=== PATIENT | male | born 1985 | race Caucasian/White ===

== ENCOUNTER 2016-09-10 23:59 | Emergency (ER) | payer BC ==
[2016-09-11] MEDS ORDERED: Fentanyl 100 MCG/2 ML VIAL ONE ×2 (00:24→01:06)
[2016-09-11] MEDS ORDERED: Ketorolac Tromethamine 30 MG/ML VIAL ONE (00:24)
[2016-09-11] MEDS ORDERED: Tamsulosin HCl 0.4 MG CAP PO SCH (00:30)
[2016-09-11 00:46] LABS: Prothrombin Time 13.7 SEC (12.0-14.7)
[2016-09-11 00:49] LABS: #Basophils 0.1 thou/uL (0.0-0.2); #Eosinphils 0.2 thou/uL (0.0-0.7); #Lymphocytes 3.7 thou/uL (1.20-3.40); #Neutrophils 5.6 thou/uL (1.40-6.50); %Basophils 0.9 % (0.0-1.0); %Eosinophils 1.9 % (0.0-10.0); %Lymphocytes 35.1 % (21.0-51.0); %Monocytes 9.7 % (0.0-10.0); %Neutrophils 52.4 % (42.0-75.0); Hemoglobin 16.4 g/dL (14.0-18.0); Mean Corpuscular HGB CONC 36.4 g/dL (32.0-36.0); Mean Corpuscular Hemoglobin 31.3 pg (27.0-31.0); Mean Corpuscular Volume 85.9 fl (80.0-94.0); Mean Platelet Volume 7.2 fL (7.4-10.4); Platelet Count 254 thou/uL (130-400); RBC Distribution Width 11.4 % (11.5-14.5); Red Blood Cell (RBC) Count 5.23 mill/uL (4.70-6.10); White Blood Cell (WBC) Count 10.6 thou/uL (4.8-10.8)
[2016-09-11 00:53] LABS: ALT (SGPT) 32 U/L (0-55); AST (SGOT) 27 U/L (5-34); Albumin 4.4 g/dL (3.5-5.0); Alkaline Phosphatase 62 U/L (40-150); Anion Gap 13 mmol/L (10-20); BUN (Urea Nitrogen) 21 mg/dL (8.9-20.6); Bilirubin, Total 0.9 mg/dL (0.2-1.2); Calc. Creatinine Clearance 0 mL/min (70-130); Calcium 9.6 mg/dL (7.8-10.44); Carbon Dioxide 26 mmol/L (22-29); Chloride 107 mmol/L (98-107); Estimated GFR-MDRD 84; Globulin 2.8 g/dL (2.4-3.5); Glucose 100 mg/dL (70-105); Protein, Total 7.2 g/dL (6.0-8.3); Sodium 142 mmol/L (136-145)
[2016-09-11 00:55] LABS: Bilirubin Negative (Negative); Blood, Urine Small (Negative); Clarity Clear (Clear); Glucose, Urine (Dipstick) Negative (Negative); Leukocyte Negative (Negative); Nitrite Negative (Negative); Protein, Urine (Dipstick) Negative (Neg-Trace); Specific Gravity, Urine 1.025 (1.005-1.030); Urobilinogen 0.2 mg/dL (0.2-1.0); pH, Urine 5.5 (5.0-9.0)
[2016-09-11 01:03] LABS: Bacteria/HPF None Seen HPF (None Seen); RBC/HPF 0-3 HPF (0-3); Squamous Epithelial 0-3 HPF (0-3); WBC/HPF 0-3 HPF (0-3)
--- NOTE | 2016-09-11 09:15 | CT ---
PRELIMINARY REPORT/[facility]/EMERGENCY AFTER HOURS PROCEDURE: EXAM: CT Abdomen and Pelvis Without Intravenous Contrast CLINICAL HISTORY: 31 years old, male; Pain; Abdominal pain; Flank; Left; Prior surgery; Surgery date: 6+ months; Surge ry type: Lithotripsy and stent placement on the left side due to kidney stones. ; Patient HX: Pt in severe pain on left flank side. H/o kidney stones. TECHNIQUE: Axial computed tomography images of the abdomen and pelvis without intravenous contrast. Coronal reformatted images were created and reviewed. COMPARISON: No relevant prior studies available. FINDINGS: Lower thorax: No acute findings. ABDOMEN: Liver: Unremarkable. Gallbladder and bile ducts: Unremarkable. No calcified stones. No ductal dilation. Pancreas: Unremarkable. No ductal dilation. Spleen: Unremarkable. No splenomegaly. Adrenals: Unremarkable. No mass. Kidneys and ureters: Mild LEFT hydronephrosis with multiple small LEFT renal stones. 9.1 mm proximal LEFT ureteral stone. 2 mm RIGHT renal stone. Stomach and bowel: Unremarkable. No obstruction. No mucosal thickening. Appendix: No findings to suggest acute appendicitis. PELVIS: Bladder: Unremarkable. No stones. Reproductive: Unremarkable as visualized. ABDOMEN and PELVIS: Intraperitoneal space: Unremarkable. No free air. No significant fluid collection. Bones/joints: No acute fracture. No dislocation. Soft tissues: Unremarkable. Vasculature: Unremarkable. No abdominal aortic aneurysm. Lymph nodes: Unremarkable. No enlarged lymph nodes. IMPRESSION: 9.1 mm proximal LEFT ureteral stone with multiple small LEFT renal stones. Mild LEFT hydronephrosis. 2 mm RIGHT renal stone Thank you for allowing us to participate in the care of your patient. Dictated and Authenticated by: Camilo De La Rosa MD 09/11/2016 12:55 AM Central Time ([place] \[place]\ [place]) FINAL REPORT CT ABDOMEN AND PELVIS WITHOUT CONTRAST: DATE: 09/11/16. FINDINGS: Spiral CT of the abdomen and pelvis was performed for evaluation of left flank pain. Axial slices w ere acquired, then coronal reconstructions were done. There is a large 9-10 mm calculus in the proximal left ureter just beyond the UPJ. It is causing mi ld to moderate left hydronephrosis. There are other nonobstructing renal calculi in the left kidney and at least 1 nonobstructing calculus in the right kidney. No calculi are seen in the distal uret er or the urinary bladder. The lung bases are clear. The spleen is a little generous in size at 13.7 cm in length. No hepatic masses were seen, though the overall liver size was upper normal. The pancreas, gallbladder, adren al glands, and abdominal aorta appeared normal. The bowel was nondistended. There are no inflammatory changes around bowel. No free air or free fl uid was seen. CT of the pelvis shows no mass, inflammatory change or free fluid. IMPRESSION: 1. A 9-10 mm proximal left ureteral calculus near the ureteropelvic junction causing mild to modera te left hydronephrosis. 2. Small nonobstructing calculi present in the right kidney and in the left kidney. 3. Hepatic and splenic sizes are slightly generous. Report in agreement with preliminary reading by [facility]. POS: HOME
== END 2016-09-11 01:58 | disposition short-term general hospital (02) ==
LOC: BURERS 23:59
DX: N13.2 Hydronephrosis with renal and ureteral calculous obstruction (principal); G40.909 Epilepsy, unspecified, not intractable, without status epilepticus; Z87.891 Personal history of nicotine dependence
CPT/HCPCS: 74176; 80053; 81003; 81015; 85025; 85610; 96361; 96365; 96375; 96376; J1885; J3010

== ENCOUNTER 2016-09-27 15:31 | Outpatient (CLI) | payer BC ==
--- NOTE | 2016-09-27 21:30 | RAD ---
ABDOMEN ONE VIEW: Date: 09-27-16 Comparison: Retrograde study dated 09-11-16 done at [facility]. FINDINGS: A ureteral stent has been placed on the left. The proximal pigtail appears to be the renal pelvis an d the distal pigtail in the urinary bladder. There are still calculi in the lower pole of the left k idney. No calcifications are seen elsewhere. IMPRESSION: Normal positioning of ureteral stent. Left renal calculi. No obvious ureteral calculi. POS: HOME
== END 2016-09-27 15:32 | disposition home or self-care (01) ==
LOC: BURRAD 15:31
PROVIDERS: ATTEND Urology
DX: N20.0 Calculus of kidney (principal)
CPT/HCPCS: 74000

== ENCOUNTER 2016-10-01 08:43 | Outpatient (CLI) | payer BC | END 2016-10-01 08:44 | disposition home or self-care (01) | LOC: BURLAB 08:43 | PROVIDERS: ATTEND Urology | DX: N20.0 Calculus of kidney (principal) | CPT/HCPCS: 87086 ==

== ENCOUNTER 2016-12-28 21:02 | Emergency (ER) | payer BC | END 2016-12-28 21:35 | disposition home or self-care (01) | LOC: BURERS 21:02 | DX: L02.31 Cutaneous abscess of buttock (principal); Z87.891 Personal history of nicotine dependence; Z87.442 Personal history of urinary calculi; Z79.899 Other long term (current) drug therapy | CPT/HCPCS: 10060; 87070; 87077; 87186; 87205; J2001 ==

== ENCOUNTER 2017-08-06 16:15 | Emergency (ER) | payer BC ==
[2017-08-06] MEDS ORDERED: Ondansetron ODT 4 MG TAB ONE (16:50)
[2017-08-06] MEDS ORDERED: Ketorolac Tromethamine 30 MG/ML VIAL ONE (16:50)
[2017-08-06] MEDS ORDERED: Lidocaine 1% 20 ML MDV ONE ×2 (17:10)
== END 2017-08-06 17:45 | disposition home or self-care (01) ==
LOC: BURERS 16:15
DX: L02.31 Cutaneous abscess of buttock (principal); Z87.891 Personal history of nicotine dependence
CPT/HCPCS: 10060; 87070; 87186; 87205; 96372; J1885; J2001; Q0162

== ENCOUNTER 2018-12-03 23:11 | Emergency (ER) | payer BC ==
[2018-12-03 23:25] LABS: Clarity Hazy (Clear)
[2018-12-03 23:26] LABS: Bilirubin Negative (Negative); Blood, Urine Moderate (Negative); Glucose, Urine (Dipstick) Negative (Negative); Leukocyte Negative (Negative); Nitrite Negative (Negative); Protein, Urine (Dipstick) Negative (Neg-Trace); Specific Gravity, Urine 1.026 (1.002-1.036); Urobilinogen 0.2 mg/dL (0.2-1.0); pH, Urine 5.5 (5.0-9.0)
[2018-12-03] MEDS ORDERED: Ketorolac Tromethamine 30 MG/ML VIAL ONE ×2 (23:29→23:40)
[2018-12-03 23:33] LABS: RBC/HPF 21-50 HPF (0-3); Squamous Epithelial 0-3 HPF (0-3); WBC/HPF 0-3 HPF (0-3)
[2018-12-04] MEDS ORDERED: HYDROcodone/Acetaminophen 5/325 mg Tablet ONE ×2 (00:01→00:22)
[2018-12-04 00:03] LABS: #Basophils 0.1 thou/uL (0.0-0.2); #Eosinphils 0.2 thou/uL (0.0-0.7); #Lymphocytes 2.9 thou/uL (1.20-3.40); #Monocytes 1.1 thou/uL (0.11-0.59); #Neutrophils 6.5 thou/uL (1.40-6.50); %Basophils 0.9 % (0.0-1.0); %Eosinophils 2.2 % (0.0-10.0); %Lymphocytes 27.2 % (21.0-51.0); %Neutrophils 59.8 % (42.0-75.0); Hemoglobin 15.8 g/dL (14.0-18.0); Mean Corpuscular HGB CONC 34.9 g/dL (32.0-36.0); Mean Corpuscular Hemoglobin 29.6 pg (27.0-31.0); Mean Corpuscular Volume 84.7 fL (78.0-98.0); Platelet Count 255 thou/uL (130-400); RBC Distribution Width 11.9 % (11.5-14.5); Red Blood Cell (RBC) Count 5.35 mill/uL (4.70-6.10); White Blood Cell (WBC) Count 10.8 thou/uL (4.8-10.8)
[2018-12-04 00:15] LABS: Anion Gap 14 mmol/L (10-20); BUN (Urea Nitrogen) 16 mg/dL (8.9-20.6); Calc. Creatinine Clearance 0 mL/min (70-130); Carbon Dioxide 23 mmol/L (22-29); Chloride 109 mmol/L (98-107); Estimated GFR-MDRD 87; Potassium 4.3 mmol/L (3.5-5.1); Sodium 142 mmol/L (136-145)
[2018-12-04 00:16] LABS: ALT (SGPT) 23 U/L (8-55); AST (SGOT) 19 U/L (5-34); Albumin 4.6 g/dL (3.5-5.0); Alkaline Phosphatase 63 U/L (40-150); Bilirubin, Total 0.6 mg/dL (0.2-1.2); Globulin 2.3 g/dL (2.4-3.5); Glucose 113 mg/dL (70-105); Protein, Total 6.9 g/dL (6.0-8.3)
--- NOTE | 2018-12-04 07:50 | CT ---
PRELIMINARY REPORT/[facility]/EMERGENCY AFTER HOURS PROCEDURE: EXAM: CT Abdomen and Pelvis Without Contrast EXAM DATE/TIME: 12/03/2018 11:23 PM CLINICAL HISTORY: 33 years old, male; Abdominal pain; Right; Patient HX: PT has prior HX of kidney stones, C/O of RIGHT flank pain for past 3 hours TECHNIQUE: Imaging protocol: Axial computed tomography images of the abdomen and pelvis without contrast. Rosales l and sagittal reformatted images were created and reviewed. Radiation optimization: All CT scans at this facility use at least one of these dose optimization techniques: automated exposure control; mA and/or kV adjustment per patient size (includes targeted e xams where dose is matched to clinical indication); or iterative reconstruction. COMPARISON: No relevant prior studies available. FINDINGS: Lungs: No consolidations in the lung bases. Liver: No liver masses. Gallbladder and bile ducts: Normal appearance of the gallbladder. No ductal dilation. Pancreas: No pancreatic mass or ductal dilation. Spleen: No splenic masses. Adrenals: No adrenal nodules. Kidneys and ureters: There are 2 stones in the proximal right ureter near the ureteropelvic junction measuring 8 x 5 x 5 mm and 7 x 4 x 5 mm. Additional 4 mm stone in the right kidney. Moderate right hy dronephrosis. There is a 3 mm stone in inferior pole of the left kidney. Stomach and bowel: No evidence of obstruction or bowel wall thickening. Appendix: Normal appendix. Intraperitoneal space: No free air or free fluid. Vasculature: Normal vasculature. Lymph nodes: No lymphadenopathy. Bladder: The bladder is decompressed. Reproductive: Normal. Bones/joints: No suspicious bone lesions. Soft tissues: No acute findings. IMPRESSION: 1. There are 2 stones in the proximal right ureter near the ureteropelvic junction resulting in moder ate hydronephrosis. 2. Bilateral nephrolithiasis. Thank you for allowing us to participate in the care of your patient. Dictated and Authenticated by: Rachele Powell MD 12/04/2018 12:30 AM Central Time ([place] & [place]) FINAL REPORT CT ABDOMEN AND PELVIS WITHOUT CONTRAST: DATE: 12/03/2018. FINDINGS: Comparison is made with a 09/11/2016 study. The prior exam showed renal calculi and left ureteral calc kinjal. Today's study shows 2 stones in the proximal right ureter just after the UPJ causing moderately sever e right hydronephrosis. One stone is about 8 mm wide and the other is 7 mm. There are also some res idual stones in the right kidney. A tiny stone is seen in the lower pole of the left kidney. No chloé al masses were seen within the limitations of a noncontrast study. The lung bases are clear. The liver, spleen, and pancreas showed no acute findings. The spleen is g enerous in size at 13.5 cm in length, but this is no different than before. The adrenal glands appea r normal. The gallbladder is decompressed. The aorta is not dilated. The bowel is unremarkable showing no sign of inflammatory change, wall thickening, or dilation. No f ree air or free fluid was seen. CT of the pelvis shows no pelvis masses, fluid collections, or inflammatory changes. IMPRESSION: 1. Two obstructing calculi in the proximal right ureter causing moderately severe right hydronephros is. They measure 7 and 8 mm respectively. 2. Residual smaller stones in each kidney. 3. Mild prominence of splenic size, but no different than the 2017 scan. Report in agreement with preliminary reading by [employer]. POS: HOME
== END 2018-12-04 00:30 | disposition home or self-care (01) ==
LOC: BURERS 23:11
DX: N13.2 Hydronephrosis with renal and ureteral calculous obstruction (principal); Z87.891 Personal history of nicotine dependence
CPT/HCPCS: 74176; 80053; 81003; 81015; 85025; 96374; 96375; J1885; J2270

== ENCOUNTER 2019-07-22 19:44 | Emergency (ER) | payer OTHER ==
[2019-07-22] MEDS ORDERED: Dicyclomine 20 MG TAB ONE (19:48)
[2019-07-22] MEDS ORDERED: Ketorolac Tromethamine 30 MG/ML VIAL ONE (19:48)
[2019-07-22] MEDS ORDERED: HYDROcodone/Acetaminophen 10/325 mg Tablet ONE (19:48)
--- NOTE | 2019-07-22 20:24 | CT ---
CT ABDOMEN AND PELVIS WITHOUT CONTRAST: History: Kidney stones, left sided flank pain. Comparison: 12-03-18 FINDINGS: Absence of oral and IV contrast reduces sensitivity of the exam, particularly for evaluation of solid organs and bowel. There are multiple calculi in the left kidney. There is left sided hydronephrosis due to a 4 mm left UPJ obstructing calculus. No calculi seen in the right kidney, right ureter, or the urinary bladder. No right sided hydroureteronephrosis. No calcified gallstones are seen. No free air or free fluid is noted in the abdomen or pelvis. The ap pendix is normal. IMPRESSION: 1. 4 mm calculus causing left UPJ obstruction. 2. Left renal calculi. POS: OFF
[2019-07-22] MEDS ORDERED: Morphine 2 MG/ML SYRINGE ONE (20:41)
[2019-07-22 21:23] LABS: Bilirubin Negative (Negative); Blood, Urine Moderate (Negative); Clarity Clear (Clear); Glucose, Urine (Dipstick) Negative (Negative); Leukocyte Negative (Negative); Nitrite Negative (Negative); Protein, Urine (Dipstick) 30 mg/dL (Neg-Trace); Urobilinogen 0.2 mg/dL (Less than 2)
[2019-07-22 21:28] LABS: Squamous Epithelial 0-3 HPF (0-3); WBC/HPF 0-3 HPF (0-3)
[2019-07-22 21:29] LABS: Bacteria/HPF None Seen HPF (None Seen)
== END 2019-07-22 21:27 | disposition home or self-care (01) ==
LOC: BURERS 19:44
DX: N13.2 Hydronephrosis with renal and ureteral calculous obstruction (principal); G40.909 Epilepsy, unspecified, not intractable, without status epilepticus; F17.220 Nicotine dependence, chewing tobacco, uncomplicated; Z87.442 Personal history of urinary calculi
CPT/HCPCS: 74176; 81003; 81015; 96372; J1885; J2270

== ENCOUNTER 2019-08-03 21:34 | Emergency (ER) | payer OTHER ==
[2019-08-03] MEDS ORDERED: Morphine 4 MG/ML VIAL ONE ×4 (21:58→23:02)
[2019-08-03] MEDS ORDERED: diphenhydrAMINE 50 MG/ML VIAL ONE (21:59)
[2019-08-03 22:04] LABS: #Basophils 0.1 thou/uL (0.0-0.2); #Eosinphils 0.5 thou/uL (0.0-0.7); #Lymphocytes 3.4 thou/uL (1.20-3.40); #Monocytes 0.9 thou/uL (0.11-0.59); #Neutrophils 6.7 thou/uL (1.40-6.50); %Basophils 0.6 % (0.0-1.0); %Lymphocytes 29.7 % (21.0-51.0); %Monocytes 7.5 % (0.0-10.0); %Neutrophils 58.1 % (42.0-75.0); Hemoglobin 16.7 g/dL (14.0-18.0); Mean Corpuscular HGB CONC 35.3 g/dL (32.0-36.0); Mean Corpuscular Volume 84.8 fL (78.0-98.0); Mean Platelet Volume 6.8 fL (7.4-10.4); Platelet Count 290 thou/uL (130-400); Red Blood Cell (RBC) Count 5.58 mill/uL (4.70-6.10); White Blood Cell (WBC) Count 11.5 thou/uL (4.8-10.8)
[2019-08-03 22:13] LABS: Bilirubin Negative (Negative); Blood, Urine Large (Negative); Clarity Clear (Clear); Glucose, Urine (Dipstick) Negative (Negative); Leukocyte Negative (Negative); Nitrite Negative (Negative); Protein, Urine (Dipstick) 30 mg/dL (Neg-Trace); Urobilinogen 0.2 mg/dL (Less than 2)
[2019-08-03 22:14] LABS: Bacteria/HPF Rare-Few HPF (None Seen); Squamous Epithelial None Seen HPF (0-3); Transitional Epithelial 0-3 HPF (None Seen); WBC/HPF 0-3 HPF (0-3)
[2019-08-03 22:22] LABS: ALT (SGPT) 61 U/L (8-55); AST (SGOT) 29 U/L (5-34); Albumin 4.7 g/dL (3.5-5.0); Alkaline Phosphatase 68 U/L (40-110); Anion Gap 15 mmol/L (10-20); BUN (Urea Nitrogen) 19 mg/dL (8.9-20.6); Bilirubin, Total 0.9 mg/dL (0.2-1.2); Calc. Creatinine Clearance 0 mL/min (70-130); Calcium 9.5 mg/dL (7.8-10.44); Carbon Dioxide 26 mmol/L (22-29); Chloride 106 mmol/L (98-107); Estimated GFR-MDRD 77; Globulin 2.9 g/dL (2.4-3.5); Glucose 111 mg/dL (70-105); Protein, Total 7.6 g/dL (6.0-8.3); Sodium 143 mmol/L (136-145)
[2019-08-03] MEDS ORDERED: Tamsulosin HCl 0.4 MG CAP PO SCH (22:45)
[2019-08-03] MEDS ORDERED: Ketorolac Tromethamine 30 MG/ML VIAL ONE (23:03)
[2019-08-04] MEDS ORDERED: HYDROcodone/Acetaminophen 5/325 mg Tablet ONE (00:06)
--- NOTE | 2019-08-04 10:05 | CT ---
PRELIMINARY REPORT/[facility]/EMERGENCY AFTER HOURS PROCEDURE Receipt of this report by the clinical staff was confirmed with ROSS GONZÁLES MD by Qing Schmidt on Aug 04, 2019 00:02:00 [employer]. Addendum electronically signed by Qing Schmidt on August 04, 2019 12:03:00 AM [facility] EXAM: CT Abdomen and Pelvis Without Intravenous Contrast CLINICAL HISTORY: LT FLANK PAIN THAT STARTED MIDAFTERNOON, PT STATES HE HAS HX OF KIDNEY STONES TECHNIQUE: Axial computed tomography images of the abdomen and pelvis without intravenous contrast. Coronal reformats provided. Total exam DLP 649.55. CONTRAST: None. COMPARISON: None provided. FINDINGS: LUNG BASES: No basilar airspace consolidation or pleural effusion. LIVER: Unremarkable. GALLBLADDER AND BILE DUCTS: Unremarkable. No calcified stone. No ductal dilation. PANCREAS: Unremarkable. SPLEEN: Unremarkable. ADRENAL GLANDS: Unremarkable. KIDNEYS, URETERS, AND BLADDER: 6 mm urinary stone within the left distal ureter with upstream uretera l dilation and moderate left hydronephrosis. There may also be a smaller stone abutting the primary s tone. No stones within the urinary bladder. There is a 2 mm stone at the mid pole of the right kidn ey and multiple punctate stones within the collecting system which are nonobstructive. Within the le ft kidney, there is a 2 mm stone at the upper pole and 5 mm stone at the lower pole. STOMACH AND BOWEL: No obstruction. No wall thickening. No CT evidence of colitis or acute diverticuli tis. APPENDIX: No CT evidence for appendicitis. PERITONEUM: No free fluid. No free air. LYMPH NODES: No lymphadenopathy. REPRODUCTIVE: Unremarkable as visualized. VASCULATURE: No aortic aneurysm. ABDOMINAL WALL AND SOFT TISSUES: Unremarkable. BONES: No fracture or suspicious osseous abnormality. Mild multilevel degenerative changes of the sp ine. IMPRESSION: 1. 6 mm obstructive stone within the left distal ureter. 2. Bilateral nephrolithiasis. ELECTRONICALLY SIGNED BY: Fermín Ahmadi M.D. Aug 03, 2019 11:59:21 PM [facility] FINAL REPORT CT ABDOMEN AND PELVIS WITHOUT CONTRAST: DATE: 08/03/2019. FINDINGS: Spiral CT of the abdomen and pelvis was done without oral or IV contrast in a renal stone protocol in this patient with left flank pain. Comparison is made with a prior CT dated 07/22/2019 which showed a calculus at the left UPJ. Today's exam shows a large 6 mm calculus in the distal left ureter just a cm or 2 shy of the left ure terovesical junction. It is causing moderate to severe left hydronephrosis. I would note that one o f the larger calcifications seen in the left kidney on the 07/22 study is no longer visible, so was pre sumably this calculus. Additionally, on the coronal view, there is a suggestion that there might be a tinier calculus following the larger one in the left ureter. There are still some residual calculi in each kidney. The scan otherwise was unremarkable. Aside from some minimal basilar atelectasis, the lungs are marija r. The liver, spleen, pancreas, gallbladder, adrenal glands, and aorta showed no acute findings with in the limitations of a noncontrast scan. The bowel shows no distention or thickening. The appendix was identified and appears normal. There is no free air or free fluid. CT of the pelvis was remarkable only for the distal left ureteral calculus. There were no inflammato ry changes in the pelvis or free fluid. IMPRESSION: 1. A 6 mm distal left ureteral calculus just shy of the left ureteropelvic junction causing moderate to severe left hydronephrosis. 2. Residual calculi in each kidney. It is noted that one of the larger calculi seen on the 07/22 CT i s no longer present in the left kidney, so it is presumably the stone causing the obstruction today. 3. Remainder of the exam showed no acute changes. Report in agreement with preliminary reading by [facility]. POS: HOME
== END 2019-08-04 00:22 | disposition home or self-care (01) ==
LOC: BURERS 21:34
DX: N13.2 Hydronephrosis with renal and ureteral calculous obstruction (principal); G40.909 Epilepsy, unspecified, not intractable, without status epilepticus; Z87.891 Personal history of nicotine dependence
CPT/HCPCS: 74176; 80053; 81003; 81015; 85025; 94760; 96374; 96375; 96376; J1200; J1885; J2270

== ENCOUNTER 2019-10-12 14:46 | Outpatient (CLI) | payer OTHER ==
--- NOTE | 2019-10-15 07:17 | RAD ---
CERVICAL SPINE 10/12/19 AP, lateral and open mouth views show no fracture, dislocation, or disc space narrowing. There is no arthritic change. The C1 to dens distance is normal and the soft tissues are normal in thickness. IMPRESSION: Normal exam. POS: HOME
== END 2019-10-12 14:47 | disposition home or self-care (01) ==
LOC: BURRAD 14:46
PROVIDERS: ATTEND Family Medicine
DX: M54.2 Cervicalgia (principal)
CPT/HCPCS: 72040

== ENCOUNTER 2020-09-24 10:02 | Emergency (ER) | payer BC ==
[2020-09-24 10:26] LABS: Bilirubin Negative (Negative); Blood, Urine Small (Negative); Clarity Slightly Cloudy (Clear); Glucose, Urine (Dipstick) Negative (Negative); Ketone, Urine Negative (Negative); Leukocyte Negative (Negative); Nitrite Negative (Negative); Protein, Urine (Dipstick) Negative (Neg-Trace); Specific Gravity, Urine 1.025 (1.005-1.030); Urobilinogen 0.2 mg/dL (Less than 2)
[2020-09-24] MEDS ORDERED: Morphine 4 MG/ML VIAL ONE ×2 (10:46→11:19)
[2020-09-24] MEDS ORDERED: diphenhydrAMINE 50 MG/ML VIAL ONE (10:47)
[2020-09-24 10:57] LABS: #Basophils 0.1 thou/uL (0.0-0.2); #Eosinphils 0.1 thou/uL (0.0-0.7); #Lymphocytes 2.1 thou/uL (1.20-3.40); #Monocytes 0.9 thou/uL (0.11-0.59); #Neutrophils 4.5 thou/uL (1.40-6.50); %Basophils 0.7 % (0.0-1.0); %Eosinophils 1.7 % (0.0-10.0); %Lymphocytes 26.8 % (21.0-51.0); %Monocytes 12.2 % (0.0-10.0); %Neutrophils 58.5 % (42.0-75.0); Hemoglobin 16.6 g/dL (14.0-18.0); Mean Corpuscular HGB CONC 34.5 g/dL (32.0-36.0); Mean Corpuscular Hemoglobin 30.3 pg (27.0-31.0); Mean Corpuscular Volume 87.9 fL (78.0-98.0); Mean Platelet Volume 6.5 fL (7.4-10.4); Platelet Count 268 thou/uL (130-400); Red Blood Cell (RBC) Count 5.46 mill/uL (4.70-6.10); White Blood Cell (WBC) Count 7.7 thou/uL (4.8-10.8)
[2020-09-24] MEDS ORDERED: Ketorolac Tromethamine 30 MG/ML VIAL ONE (11:19)
[2020-09-24 11:22] LABS: ALT (SGPT) 30 U/L (8-55); AST (SGOT) 23 U/L (5-34); Albumin 4.4 g/dL (3.5-5.0); Alkaline Phosphatase 64 U/L (40-110); Anion Gap 12 mmol/L (10-20); BUN (Urea Nitrogen) 14 mg/dL (8.9-20.6); Bilirubin, Total 0.8 mg/dL (0.2-1.2); Calc. Creatinine Clearance 0 mL/min (70-130); Calcium 9.3 mg/dL (7.8-10.44); Carbon Dioxide 27 mmol/L (22-29); Chloride 108 mmol/L (98-107); Globulin 2.8 g/dL (2.4-3.5); Glucose 102 mg/dL (70-105); Potassium 4.5 mmol/L (3.5-5.1); Protein, Total 7.2 g/dL (6.0-8.3); Sodium 142 mmol/L (136-145)
[2020-09-24 11:35] LABS: Squamous Epithelial 0-3 HPF (0-3); WBC/HPF 0-3 HPF (0-3)
[2020-09-24 11:36] LABS: Bacteria/HPF None Seen HPF (None Seen)
[2020-09-24] MEDS ORDERED: Tamsulosin HCl 0.4 MG CAP PO SCH (11:45)
== END 2020-09-24 12:25 | disposition home or self-care (01) ==
LOC: BURERS 10:02
DX: N13.2 Hydronephrosis with renal and ureteral calculous obstruction (principal); G40.909 Epilepsy, unspecified, not intractable, without status epilepticus; Z87.891 Personal history of nicotine dependence
CPT/HCPCS: 74176; 80053; 81003; 81015; 85025; 94760; 96374; 96375; J1200; J1885; J2270

== ENCOUNTER 2021-04-22 13:39 | Emergency (ER) | payer BC ==
[2021-04-22] MEDS ORDERED: Clindamycin/D5W 600 mg/50 ml Premix Bag ONE (14:03)
[2021-04-22 14:24] LABS: #Basophils 0.1 thou/uL (0.0-0.2); #Eosinphils 0.2 thou/uL (0.0-0.7); #Lymphocytes 1.8 thou/uL (1.20-3.40); #Monocytes 0.8 thou/uL (0.11-0.59); %Basophils 0.7 % (0.0-1.0); %Lymphocytes 18.2 % (21.0-51.0); %Monocytes 7.8 % (0.0-10.0); %Neutrophils 71.4 % (42.0-75.0); Mean Corpuscular HGB CONC 35.3 g/dL (32.0-36.0); Mean Corpuscular Hemoglobin 30.2 pg (27.0-31.0); Mean Corpuscular Volume 85.5 fL (78.0-98.0); Mean Platelet Volume 6.3 fL (7.4-10.4); Platelet Count 284 thou/uL (130-400); RBC Distribution Width 11.9 % (11.5-14.5); Red Blood Cell (RBC) Count 5.31 mill/uL (4.70-6.10); White Blood Cell (WBC) Count 9.9 thou/uL (4.8-10.8)
[2021-04-22 14:30] LABS: ALT (SGPT) 37 U/L (8-55); AST (SGOT) 30 U/L (5-34); Albumin 4.4 g/dL (3.5-5.0); Alkaline Phosphatase 52 U/L (40-110); Anion Gap 13 mmol/L (10-20); BUN (Urea Nitrogen) 13 mg/dL (8.9-20.6); Bilirubin, Total 0.8 mg/dL (0.2-1.2); Calc. Creatinine Clearance 0 mL/min (70-130); Carbon Dioxide 23 mmol/L (22-29); Chloride 109 mmol/L (98-107); Globulin 2.7 g/dL (2.4-3.5); Glucose 114 mg/dL (70-105); Potassium 4.2 mmol/L (3.5-5.1); Protein, Total 7.1 g/dL (6.0-8.3); Sodium 141 mmol/L (136-145)
== END 2021-04-22 15:24 | disposition home or self-care (01) ==
LOC: BURERS 13:39
DX: K04.7 Periapical abscess without sinus (principal); G40.909 Epilepsy, unspecified, not intractable, without status epilepticus; Z87.442 Personal history of urinary calculi; Z87.891 Personal history of nicotine dependence; Z79.899 Other long term (current) drug therapy
CPT/HCPCS: 80053; 83605; 85025; 96365; J3490

== ENCOUNTER 2021-05-01 14:56 | Emergency (ER) | payer BC ==
[2021-05-01] MEDS ORDERED: Boostrix 0.5 ML (Tdap) VIAL ONE (15:16)
[2021-05-01] MEDS ORDERED: HYDROcodone/Acetaminophen 10/325 mg Tablet ONE (15:17)
[2021-05-01] MEDS ORDERED: Clindamycin 150 MG CAP ONE (15:17)
[2021-05-01] MEDS ORDERED: Lidocaine 1% w/Epinephrine 1:100K 20 ML VIAL ONE (15:22)
== END 2021-05-01 16:44 | disposition home or self-care (01) ==
LOC: BURERS 14:56
DX: S56.221A Laceration of other flexor muscle, fascia and tendon at forearm level, right arm, initial encounter (principal); S61.511A Laceration without foreign body of right wrist, initial encounter; S64.01XA Injury of ulnar nerve at wrist and hand level of right arm, initial encounter; W26.0XXA Contact with knife, initial encounter; Z87.891 Personal history of nicotine dependence; Z23 Encounter for immunization
CPT/HCPCS: 12001; 90471; 90715

== ENCOUNTER 2021-05-24 09:05 | Emergency (ER) | payer BC ==
[2021-05-24] MEDS ORDERED: Fentanyl 100 MCG/2 ML VIAL ONE ×2 (09:38→10:09)
[2021-05-24] MEDS ORDERED: Glycopyrrolate 0.4 MG/ 2 ML VIAL ONE (09:39)
[2021-05-24] MEDS ORDERED: Ondansetron PF 4 MG/2 ML Vial ONE (09:39)
[2021-05-24] MEDS ORDERED: Ketorolac Tromethamine 30 MG/ML VIAL ONE (09:39)
[2021-05-24] MEDS ORDERED: Dicyclomine 20 MG TAB ONE (10:09)
[2021-05-24 10:45] LABS: Bilirubin Negative (Negative); Blood, Urine Trace (Negative); Clarity Clear (Clear); Glucose, Urine (Dipstick) Negative (Negative); Ketone, Urine Negative (Negative); Leukocyte Negative (Negative); Nitrite Negative (Negative); Protein, Urine (Dipstick) Negative (Neg-Trace); Specific Gravity, Urine 1.025 (1.005-1.030); Urobilinogen 0.2 mg/dL (Less than 2)
[2021-05-24 11:04] LABS: Bacteria/HPF None Seen HPF (None Seen); Squamous Epithelial 0-3 HPF (0-3); WBC/HPF 0-3 HPF (0-3)
[2021-05-24 11:05] LABS: Mucous/LPF Rare LPF (<2+)
[2021-05-24] MEDS ORDERED: Morphine 4 MG/ML VIAL ONE (12:01)
== END 2021-05-24 12:56 | disposition home or self-care (01) ==
LOC: BURERS 09:05
DX: N20.0 Calculus of kidney (principal); Z87.891 Personal history of nicotine dependence; G40.909 Epilepsy, unspecified, not intractable, without status epilepticus
CPT/HCPCS: 81003; 81015; 96374; 96375; 96376; J1885; J2270; J2405; J3010

== ENCOUNTER 2021-05-27 11:03 | Outpatient (CLI) | payer BC | END 2021-05-27 11:04 | disposition home or self-care (01) | LOC: BURCT 11:03 | PROVIDERS: ATTEND Urology | DX: N20.2 Calculus of kidney with calculus of ureter (principal) | CPT/HCPCS: 74176 ==

== ENCOUNTER 2021-05-28 11:42 | Outpatient (CLI) | payer BC ==
[2021-05-28 12:33] LABS: Hemoglobin 14.3 g/dL (14.0-18.0); Red Blood Cell (RBC) Count 4.84 mill/uL (4.70-6.10); White Blood Cell (WBC) Count 8.2 thou/uL (4.8-10.8)
[2021-05-28 12:34] LABS: Bilirubin Negative (Negative); Blood, Urine Trace (Negative); Clarity Cloudy (Clear); Glucose, Urine (Dipstick) Negative (Negative); Ketone, Urine Negative (Negative); Leukocyte Negative (Negative); Mean Corpuscular HGB CONC 34.9 g/dL (32.0-36.0); Mean Corpuscular Hemoglobin 29.5 pg (27.0-31.0); Mean Corpuscular Volume 84.4 fL (78.0-98.0); Mean Platelet Volume 7.1 fL (7.4-10.4); Nitrite Negative (Negative); Platelet Count 318 thou/uL (130-400); Protein, Urine (Dipstick) Negative (Neg-Trace); RBC Distribution Width 11.9 % (11.5-14.5); Urobilinogen 0.2 mg/dL (Less than 2)
[2021-05-28 12:59] LABS: Anion Gap 15 mmol/L (10-20); BUN (Urea Nitrogen) 18 mg/dL (8.9-20.6); Calc. Creatinine Clearance 0 mL/min (70-130); Calcium 10.3 mg/dL (7.8-10.44); Carbon Dioxide 24 mmol/L (22-29); Chloride 107 mmol/L (98-107); Glucose 90 mg/dL (70-105); Potassium 4.7 mmol/L (3.5-5.1); Sodium 141 mmol/L (136-145)
[2021-05-28 13:11] LABS: PTT 35.4 sec (22.9-36.1)
[2021-05-28 13:14] LABS: SARS-CoV-2 NAA Rapid Test Not Detected (NotDetected)
== END 2021-05-28 11:43 | disposition home or self-care (01) ==
LOC: BURLAB 11:42
PROVIDERS: ATTEND Urology
DX: Z01.812 Encounter for preprocedural laboratory examination (principal); N20.0 Calculus of kidney; Z20.822 Contact with and (suspected) exposure to COVID-19
CPT/HCPCS: 36415; 80048; 81003; 85027; 85610; 85730; 87086; U0002

== ENCOUNTER 2021-12-02 10:01 | Outpatient (CLI) | payer BC | END 2021-12-02 10:02 | disposition home or self-care (01) | LOC: BURCT 10:01 | PROVIDERS: ATTEND Urology | DX: N20.2 Calculus of kidney with calculus of ureter (principal); N32.89 Other specified disorders of bladder | CPT/HCPCS: 74176 ==

== ENCOUNTER 2022-05-27 12:40 | Emergency (ER) | payer BC, OTHER ==
[2022-05-27] MEDS ORDERED: Acetaminophen 500 MG TAB ONE (12:57)
[2022-05-27] MEDS ORDERED: Ketorolac Tromethamine 30 MG/ML VIAL ONE (12:57)
[2022-05-27] MEDS ORDERED: Ondansetron PF 4 MG/2 ML Vial ONE (12:57)
[2022-05-27] MEDS ORDERED: Vancomycin 1 GM VIAL ONE (13:05)
[2022-05-27 13:10] LABS: #Basophils 0.1 thou/uL (0.0-0.2); #Eosinphils 0.2 thou/uL (0.0-0.7); #Lymphocytes 1.1 thou/uL (1.20-3.40); #Monocytes 0.9 thou/uL (0.11-0.59); #Neutrophils 12.2 thou/uL (1.40-6.50); %Basophils 0.4 % (0.0-1.0); %Eosinophils 1.3 % (0.0-10.0); %Lymphocytes 7.4 % (21.0-51.0); %Monocytes 5.9 % (0.0-10.0); Hemoglobin 17.4 g/dL (14.0-18.0); Mean Corpuscular HGB CONC 35.4 g/dL (32.0-36.0); Mean Corpuscular Hemoglobin 30.5 pg (27.0-31.0); Mean Corpuscular Volume 86.1 fl (78.0-98.0); Mean Platelet Volume 7.4 fL (7.4-10.4); Platelet Count 265 10x3/uL (130-400); RBC Distribution Width 11.8 % (11.5-14.5); Red Blood Cell (RBC) Count 5.69 mill/uL (4.70-6.10); White Blood Cell (WBC) Count 14.3 10x3/uL (4.8-10.8)
[2022-05-27 13:24] LABS: ALT (SGPT) 24 U/L (8-55); AST (SGOT) 20 U/L (5-34); Albumin 4.5 g/dL (3.5-5.0); Alkaline Phosphatase 69 U/L (40-110); Anion Gap 11 mmol/L (10-20); BUN (Urea Nitrogen) 10 mg/dL (8.9-20.6); Bilirubin, Total 0.9 mg/dL (0.2-1.2); CK (CPK) 35 U/L (30-200); Calc. Creatinine Clearance 0 mL/min (70-130); Calcium 9.4 mg/dL (7.8-10.44); Carbon Dioxide 27 mmol/L (22-29); Chloride 107 mmol/L (98-107); Estimated GFR 114; Globulin 2.9 g/dL (2.4-3.5); Glucose 119 mg/dL (70-105); Potassium 4.2 mmol/L (3.5-5.1); Protein, Total 7.4 g/dL (6.0-8.3); Sodium 141 mmol/L (136-145)
[2022-05-27] MEDS ORDERED: Acetaminophen/Codeine 30-300mg Tablet ONE (14:24)
== END 2022-05-27 14:33 | disposition home or self-care (01) ==
LOC: BURERS 12:40
DX: L03.221 Cellulitis of neck (principal); R50.9 Fever, unspecified; Z87.891 Personal history of nicotine dependence
CPT/HCPCS: 36415; 80053; 82550; 83605; 85025; 87040; 87077; 87149; 87186; 96365; 96375; J1885; J2405; J3370

== ENCOUNTER 2022-12-02 17:38 | Outpatient (CLI) | payer OTHER | END 2022-12-02 17:39 | disposition home or self-care (01) | LOC: BURRAD 17:38 | PROVIDERS: ATTEND Family Medicine | DX: M25.511 Pain in right shoulder (principal) ==

== ENCOUNTER 2023-11-18 23:23 | Emergency (ER) | payer OTHER, SELFPAY ==
[~2023-11-18 23:23] MED LIST: Iopamidol 370 76% 100 ML VIAL ONE
[2023-11-18] MEDS ORDERED: Morphine 4 MG/ML VIAL ONE (23:33)
[2023-11-18] MEDS ORDERED: Ketorolac Tromethamine 30 MG (1 mL) VIAL ONE (23:34)
[2023-11-18] MEDS ORDERED: Morphine 2 MG/ML VIAL ONE (23:34)
[2023-11-19] MEDS ORDERED: Morphine 4 MG/ML VIAL ONE ×2 (00:02→01:00)
[2023-11-19 00:14] LABS: #Basophils 0.1 thou/uL (0.0-0.2); #Eosinphils 0.3 thou/uL (0.0-0.7); #Lymphocytes 2.2 thou/uL (1.20-3.40); #Monocytes 1.4 thou/uL (0.11-0.59); #Neutrophils 7.7 thou/uL (1.40-6.50); %Basophils 0.9 % (0.0-1.0); %Eosinophils 2.4 % (0.0-10.0); %Lymphocytes 18.8 % (21.0-51.0); %Monocytes 11.6 % (0.0-10.0); %Neutrophils 66.2 % (42.0-75.0); Hematocrit 47.3 % (42.0-52.0); Hemoglobin 16.5 g/dL (14.0-18.0); Mean Corpuscular HGB CONC 34.9 g/dL (32.0-36.0); Mean Corpuscular Hemoglobin 29.2 pg (27.0-31.0); Mean Corpuscular Volume 83.6 fl (78.0-98.0); Mean Platelet Volume 6.8 fL (7.4-10.4); Platelet Count 287 10x3/uL (130-400); RBC Distribution Width 11.6 % (11.5-14.5); Red Blood Cell (RBC) Count 5.65 mill/uL (4.70-6.10); White Blood Cell (WBC) Count 11.6 10x3/uL (4.8-10.8)
[2023-11-19 00:31] LABS: ALT (SGPT) 46 U/L (8-55); AST (SGOT) 44 U/L (5-34); Albumin 4.7 g/dL (3.5-5.0); Alkaline Phosphatase 56 U/L (40-110); Anion Gap 16 mmol/L (10-20); BUN (Urea Nitrogen) 23 mg/dL (8.9-20.6); Bilirubin, Total 1.7 mg/dL (0.2-1.2); Calc. Creatinine Clearance 0 mL/min (70-130); Calcium 9.4 mg/dL (7.8-10.44); Carbon Dioxide 22 mmol/L (22-29); Chloride 107 mmol/L (98-107); Estimated GFR 64; Globulin 2.2 g/dL (2.4-3.5); Glucose 124 mg/dL (70-105); Lipase 48 U/L (8-78); Potassium 3.7 mmol/L (3.5-5.1); Protein, Total 6.9 g/dL (6.0-8.3); Sodium 141 mmol/L (136-145)
[2023-11-19] MEDS ORDERED: Ondansetron PF 4 MG/2 ML Vial ONE (01:22)
[2023-11-19 02:42] LABS: Bilirubin Negative (Negative); Blood, Urine Trace (Negative); Clarity Clear (Clear); Glucose, Urine (Dipstick) Negative (Negative); Ketone, Urine Trace mg/dL (Negative); Leukocyte Negative (Negative); Nitrite Negative (Negative); Protein, Urine (Dipstick) Negative (Neg-Trace); Urobilinogen 0.2 mg/dL (Less than 2); pH, Urine 5.5 (5.0-9.0)
[2023-11-19 02:45] LABS: Bacteria/HPF None Seen HPF (None Seen); CAUTI Indications for Culture Pelvic or flank pain; RBC/HPF 0-3 HPF (0-3); Specific Gravity, Urine Greater/Equal 1.030 (1.005-1.030); Squamous Epithelial None Seen HPF (0-3); WBC/HPF None Seen HPF (0-3)
[2023-11-19 02:46] LABS: Urine Culture Reflex No No
== END 2023-11-19 03:08 | disposition home or self-care (01) ==
LOC: BURERS 23:23
DX: R10.9 Unspecified abdominal pain (principal); F17.220 Nicotine dependence, chewing tobacco, uncomplicated
CPT/HCPCS: 74175; 74176; 80053; 81001; 83605; 83690; 85025; 96374; 96375; 96376; J1885; J2270; J2272; J2405; Q9967

== ENCOUNTER 2025-03-27 18:51 | Outpatient (CLI) | payer BC | END 2025-03-27 18:52 | disposition home or self-care (01) | LOC: BURRAD 18:51 | PROVIDERS: ATTEND Family Medicine | DX: M79.604 Pain in right leg (principal) ==